=== PATIENT | female | born 1975 | race Two or more races ===

== ENCOUNTER 2016-05-14 15:33 | Emergency (ER) | payer MEDICAID, OTHER ==
[2016-05-14] MEDS ORDERED: PANTOPRAZOLE SODIUM 40 MG VIAL IV ONE (16:31)
[2016-05-14] MEDS ORDERED: ONDANSETRON 4 MG/2ML 2 ML VIAL ONE (16:31)
[2016-05-14] MEDS ORDERED: SODIUM CHLORIDE 0.9% 1,000 ML ONE ×2 (16:31→17:12)
[2016-05-14] MEDS ORDERED: ACETAMINOPHEN 500 MG TABLET ONE (16:31)
[2016-05-14 16:42] LABS: ABSOLUTE NEUTROPHIL COUNT 5.7 K/mm3 (1.8-7.7); BASO # 0.1 K/mm3 (0.0-0.2); BASO % 0.6 % (0.2-1.0); EOS # 0.2 (0.0-0.5); EOS % 2.5 % (0.9-2.9); HEMATOCRIT 40.7 % (37.0-47.0); HEMOGLOBIN 13.5 gm/l (12.0-16.0); IMM NEUT% 0.3 % (0-1); LYMPH # 2.1 (1.0-4.8); MEAN CELL VOLUME 93.6 fl (81.0-99.0); MEAN CORPUSCULAR HGB CONC 33.2 g/dl (33.0-37.0); MEAN PLATELET VOLUME 8.6 fl (7.4-10.4); MONO # 0.7 (0.0-0.8); MONO % 7.9 % (4-12); NEUT % 64.7 % (43-75); PLATELET COUNT 507 K/mm3 (130-400); RED CELL DISTRIBUTION WIDTH 13.6 % (11.5-14.5)
--- NOTE | 2016-05-14 16:53 | RAD ---
05/14/2016 4:49 PM CHEST - 2 VIEWS History: Malaise for one month. Fever and cough. Comparison: None Findings: Two views of the chest are obtained. The lungs are clear with out effusion or pneumothorax. The cardiomediastinal silhouette is unremarkable.. The osseous structures are intact.. IMPRESSION: No acute intrathoracic process.
[2016-05-14 16:55] LABS: ALB/GLOB RATIO 1.2 (>1.0); CALCIUM 9.2 mg/dL (8.6-10.3)
[2016-05-14] MEDS ORDERED: DEXAMETHASONE SOD PHOS 10 MG/1 ML VIAL ONE (17:19)
[2016-05-14] MEDS ORDERED: DIPHENHYDRAMINE HCL 50 MG/1 ML VIAL ONE (17:19)
[2016-05-14] MEDS ORDERED: CYCLOBENZAPRINE HCL 10 MG TABLET ONE (17:19)
[2016-05-14 18:26] LABS: URINE BILIRUBIN NEGATIVE (NEGATIVE); URINE BLOOD 3+ (NEGATIVE); URINE GLUCOSE (UA) NEGATIVE (NEGATIVE); URINE LEUKOCYTE ESTERASE TRACE (NEGATIVE); URINE NITRITE NEGATIVE (NEGATIVE); URINE PROTEIN 1+ (NEGATIVE); URINE UROBILINOGEN NORMAL (0-1 mg/dl)
[2016-05-14 18:31] LABS: URINE APPEARANCE HAZY; URINE COLOR YELLOW
[2016-05-14 18:32] LABS: URINE AMORPHOUS SEDIMENT 1+; URINE BACTERIA FEW; URINE CRYSTALS FEW CALCIUM OXALATE /hpf; URINE EPITHELIAL CELLS FEW /hpf; URINE MUCUS 2+; URINE RBC >100 /hpf
== END 2016-05-14 19:10 | disposition home or self-care (01) ==
LOC: ED 15:33
DX: R10.12 Left upper quadrant pain (principal); R11.2 Nausea with vomiting, unspecified
CPT/HCPCS: 82150; 84703; 85025; 80053; 81001; 71020; 96375 ×3; 99284 ×2; 96374; 96361; J1200; J1100; C9113; A9270; J2405; J7030 ×2